=== PATIENT | male | born 1960 | race Caucasian/White ===

== ENCOUNTER 2019-06-14 16:50 | Outpatient (CLI) | payer OTHER ==
[2019-06-14 17:08] LABS: HGB - HEMOGLOBIN 16.3 g/dL (14.0-18.0); MEAN CORPUSCULAR HEMOGLOBIN 31.2 pg (27.0-31.0); MEAN CORPUSCULAR HGB CONC 34.8 g/dL (32.0-36.0); MEAN CORPUSCULAR VOLUME 89.7 fL (80.0-94.0); MEAN PLATELET VOLUME 9.5 fL (7.4-11.4); RED BLOOD COUNT 5.22 10^6/uL (4.70-6.10); RED CELL DISTRIBUTION WIDTH 12.9 % (12.0-15.0); WHITE BLOOD COUNT 7.1 x10^3/uL (4.8-10.8)
[2019-06-14 18:52] LABS: URIC ACID 5.2 mg/dL (2.6-7.2)
[2019-06-14 19:08] LABS: CRP - C-REACTIVE PROTEIN < 1.0 mg/dL (0-1.0)
[2019-06-14 19:50] LABS: RHEUMATOID FACTOR NEGATIVE (Negative)
[2019-06-18 16:50] LABS: ANA SCREEN NEGATIVE (NEGATIVE)
== END 2019-06-14 16:51 | disposition home or self-care (01) ==
LOC: LAB 16:50
PROVIDERS: ATTEND Family Medicine
DX: L29.9 Pruritus, unspecified (principal)
CPT/HCPCS: 36415; 84550; 85027; 85651; 86038; 86140; 86200; 86430

== ENCOUNTER 2019-06-25 10:18 | Outpatient (CLI) | payer OTHER ==
[2019-06-25 21:08] LABS: TRICHOMONAS VAGINALIS DNA NEGATIVE (NEGATIVE)
[2019-06-26 12:11] LABS: HEPATITIS C ANTIBODY NON-REACTIVE (NON-REACTIVE)
[2019-06-26 14:06] LABS: HIV AG/AB 4TH GEN NON-REACTIVE (NON-REACTIVE)
[2019-06-27 13:12] LABS: HSV 1 IGG TYPE SPECIFIC AB <0.90 index
== END 2019-06-25 23:59 | disposition home or self-care (01) ==
LOC: LAB.N 10:18
PROVIDERS: ATTEND Family Medicine
DX: Z11.3 Encounter for screening for infections with a predominantly sexual mode of transmission (principal)
CPT/HCPCS: 36415; 81599; 86695; 86696; 86803; 87086; 87389; 87491; 87591; 87661